=== PATIENT | female | born 1990 | race Caucasian/White ===

== ENCOUNTER 2024-02-26 20:46 | Emergency (ER) | payer OTHER, SELFPAY ==
[2024-02-26 20:59] VITALS: BMI 23.4
[2024-02-26 21:00] VITALS: BP 110/71
--- NOTE | 2024-02-26 21:50 | ED.GENMED ---
History of Present Illness
General
Chief Complaint: Crisis Evaluation
Source: patient
Exam Limitations: none
Time Seen by Provider: 02/26/24 21:09
Nursing documentation reviewed up to this point in time: agreed with
History of Present Illness
History of Present Illness:
33-year-old female with past medical history of anxiety and depression, distant history of alcohol use who presents to the emergency room for evaluation of depression and erratic behavior. Patient says that unfortunately her father recently passed
away and she has been under increased stress recently. She says that because of this she has been a bit more withdrawn and she says a bit more depressed as well. Apparently her mother is very concerned about erratic behavior recently�mother
reports that she is not sleeping, was not eating today and has been behaving oddly. Patient cites increased stress as the cause of this behavior. Patient does not feel suicidal she says. She has no homicidal ideation. She denies any
hallucinations to me. She denies any drug or alcohol use to me and says she has been sober for 3 years. She was brought into the emergency room to be assessed. When asked if she feels that she needs psychiatric treatment patient says 'I am not
sure.' Apparently patient's mother and brother feel that she needs inpatient psychiatric care and are concerned for her wellbeing.
Past History
Past History
ED Past Medical History: Psychiatric (Anxiety, Bipolar, depression. PTSD, ADHD) and Other (UTI , Renal calculus, Liver cyst)
ED Past Surgical History: Other
Social History
Tobacco: Smoker
Alcohol: Chronic alcoholic
Drug: None
Personal: Single
Living: with family
Employment: Other
Family History
Family History: Hypertension
Review of Systems
Review of Systems
All Other Systems: ROS reviewed and negative except as documented in HPI and ROS
Constitutional: Denies fever
Respiratory: Denies trouble breathing
Cardiac: Denies chest pain
ABD/GI: Denies abdominal pain or vomiting
: Denies flank pain
Musculoskeletal: Denies neck pain or back pain
Neurological: Denies headache
Psychiatric: Reports depression and anxiety; Denies suicidal or hallucinations
Phy Exam
Physical Exam
Physical Exam:
General: Awake, alert, oriented x3; appears anxious
Head: Normocephalic, atraumatic
Eyes: Conjunctiva normal, pupils equal round reactive to light bilaterally, sclera anicteric
Throat: Airway intact, handling secretions
Neck: Trachea midline, supple without meningismus
Lungs: Clear to auscultation bilaterally, no wheezing, rales, rhonchi
Heart: Regular rate and rhythm, no murmurs, gallops, or rubs
Abd: Soft, non distended, nontender
Neuro: No gross deficits
Skin: Patient has scabs scattered on the neck and extremities
Extremities: Warm well-perfused, no signs of self-harm/cutting
Scores
Heart Failure Risk
Heart Failure Risk Score: Not Applicable
Heart Score for Chest Pain Patients
STEMI patient?: Not applicable
Withdrawal Assessment of Alcohol
Withdrawal Assessment Completed?: Not applicable
Course
Orders/Labs/Results
Orders:
Orders
02/26/24 21:10
1:1 Observation - Suicide/ Violent Behavior As Directed
Crisis Consult Routine
Reason for Consult: depression
02/26/24 21:36
Test Result ONCE
02/26/24 21:37
Drug Screen, Urine [Urine Drug Abuse Screen] Urgent
Date Specimen was Collected: 02/26/24
Time Specimen was Collected: 21:42
Urinalysis Reflex To Culture Urgent
Date Specimen was Collected: 02/26/24
Time Specimen was Collected: 21:42
02/26/24 22:13
Acetaminophen Urgent
Alcohol Urgent
Complete Blood Count/With Diff Urgent
Comprehensive Metabolic Panel Urgent
HCG, Serum Qualitative Screen Urgent
Salicylate Urgent
Abnormal Lab Results
02/26/24
22:13
Potassium 3.3 L mmol/L
(3.5-5.1)
Carbon Dioxide 20 L mmol/L
(22-30)
BUN 29 H mg/dl
(7-17)
Creatinine 1.1 H mg/dL
(0.6-1.0)
Total Bilirubin 2.6 H mg/dl
(0.2-1.3)
Salicylates < 1.0 L mg/dl
(2.0-20.0)
Acetaminophen < 10 L ug/ml
(10-30)
02/26/24 22:13
Vital Signs
Initial and Last Documented VS:
Initial Vital Signs
Temp Pulse Resp BP Pulse Ox
37.4 C 86 21 110/71 98
02/26/24 21:00 02/26/24 21:00 02/26/24 21:00 02/26/24 21:00 02/26/24 21:00
Last Documented Vital Signs
Temp Pulse Resp BP Pulse Ox
37.4 C 86 21 110/71 98
02/26/24 21:00 02/26/24 21:00 02/26/24 21:00 02/26/24 21:00 02/26/24 21:00
MDM/Problems Addressed
Differential Diagnosis Includes:
Depression, drug use, bipolar disorder
MDM/Problems Addressed:
33-year-old female presents for evaluation of depression and bizarre behavior over the past few days she says triggered by increased stress recently including the passing of her father. Family is concerned for patient's wellbeing. Brought patient
in for assessment. Patient has no physical complaints. Vitals and exam as above. Will check screening labs and drug screen. Case discussed with crisis team to assess.
Crisis team assessed patient and long discussion with patient and her mother. Patient becoming increasingly agitated and erratic. Mother is concerned for patient's wellbeing and safety because her behavior has been very erratic and she is not
caring for herself. Mother filed 302. Will monitor patient pending telepsychiatry evaluation.
Chronic conditions affecting care:
Depression and anxiety
*Pulse Oximetry
Patient hypoxic: no
*Critical Care Note
Total Time (30-74mins, 75-104mins- exclusive of procedures): Not Applicable
Data Reviewed
Source: patient and family
Patient Management
Discussion with other providers: Other (Discussed with crisis staff)
ED Attending Note
-
Portions of this chart may have been created with voice recognition software.� Occasional wrong word or��sound alike� substitutions may have occurred due to the inherent limitations of voice recognition software.
Discharge Plan
Departure
Patient Disposition: Psych Facility
Date of Disposition: 02/26/24
Time of Disposition: 23:06
Discharge Problem:
Depression, Bizarre behavior
Prescriptions:
No Action
dextroamphetamine-amphetamine [Adderall] 20 MG tablet
20 mg PO DAILY
Patient Comments:
take in the afternoon
dextroamphetamine-amphetamine [Adderall XR] 30 MG capsule,extended release 24hr
30 mg PO BID
Nuvaring Vaginal Ring
1
hydrocodone-acetaminophen [Vicodin] 1 EACH tablet
1 ea PO .Q4-6HPRN Qty: 12 0RF
ibuprofen 600 MG tablet
600 mg PO Q6H Qty: 30 0RF
levofloxacin 500 MG tablet
500 mg PO DAILY Qty: 9 0RF
ondansetron 4 MG tablet,disintegrating
4 mg PO TIDPRN PRN (Reason: NAUSEA) Qty: 20 0RF
ibuprofen 600 mg tablet
600 mg PO Q6H PRN (Reason: pain) Qty: 20 0RF
tramadol 50 mg tablet
50 mg PO Q8H PRN (Reason: pain) Qty: 10 0RF
oxycodone 5 mg tablet
5 mg PO Q8H PRN (Reason: pain) Qty: 10 0RF
lidocaine [Lidoderm] 5 % adhesive patch,medicated
1 patch topical DAILY Qty: 15 0RF
chlorpromazine 50 mg tablet
50 mg PO BID Qty: 14 0RF
Referrals:
UNKNOWN - PT NOT,INTERVIE[facility] [Family Provider] -
Interventions
Interventions:
*Risk Screen - Suicide Last Done: 02/26/24 20:59
*General Assessment Last Done: 02/26/24 20:59
*Neglect/Abuse Screening Last Done: 02/26/24 20:59
ED-Psychological Assessment Last Done: 02/26/24 21:21
Discharge Date and Time
Print Language: AMHARIC
[2024-02-26 22:35] LABS: ALT (SGPT) 27 U/L (0-35); AST (SGOT) 32 U/L (14-36); Acetaminophen < 10 ug/ml (10-30); Albumin 4.7 g/dl (3.5-5.0); Alkaline Phosphatase 76 U/L (38-126); Blood Urea Nitrogen 29 mg/dl (7-17); Calcium 9.8 mg/dl (8.4-10.2); Carbon Dioxide 20 mmol/L (22-30); Chloride 99 mmol/L (98-107); Estimated Creatinine Clearance 67 ml/min; Glucose 75 mg/dl (70-99); Potassium 3.3 mmol/L (3.5-5.1); Salicylate < 1.0 mg/dl (2.0-20.0); Sodium 135 mmol/L (135-145); Total Bilirubin 2.6 mg/dl (0.2-1.3); Total Protein 7.3 g/dl (6.3-8.2); eGFR > 60.00
[2024-02-26 22:36] LABS: Alcohol None Detected; HCG, Serum Qualitative Screen Negative
[2024-02-26 23:12] LABS: % Basophils 0.9 % (0-2); % Eosinophils 1.6 % (0-6); % Immature Granulocytes 0.6 % (0-0.5); % Lymphocytes 18.8 % (20.5-51.1); % Monocytes 8.7 % (1.7-9.3); % Neutrophils 69.4 % (42.2-75.2); Absolute Basophils 0.2 10^3/uL (0-0.2); Absolute Eosinophils 0.3 10^3/uL (0-0.7); Absolute Immature Granulocytes 0.1 10^3/uL (0-0.05); Absolute Monocytes 1.4 10^3/uL (0.1-0.6); Absolute Neutrophils 11.1 10^3/uL (1.4-6.5); Hematocrit 34.1 % (37.0-47.0); Hemoglobin 13.2 g/dL (12.0-16.0); Mean Corp Hgb Conc. 38.7 g/dL (33.0-37.0); Mean Corpuscular Hgb 32.6 pg (27.0-31.0); Mean Corpuscular Volume 84.2 fL (81.0-99.0); Mean Platelet Volume 10.2 fL (7.4-10.4); Nucleated Red Blood Cells % 0 %; Platelet Count 356 10^3/uL (130-400); Red Blood Cell Count 4.05 10^6/uL (4.20-5.40); Red Cell Dist. Width 12.1 % (11.5-14.5)
[2024-02-26 23:52] VITALS: BP 111/70
[2024-02-27] MEDS: ATIVAN 1 MG PO (00:08)
[2024-02-27 01:45] LABS: Urine Albumin Trace (Neg - Trace); Urine Bilirubin 1+ (Negative); Urine Character Clear (Clear); Urine Color Yellow; Urine Glucose Negative (Negative); Urine Ketone 3+ (Negative); Urine Leukocyte 1+ (Negative); Urine Nitrite Negative (Negative); Urine Occult Blood Negative (Negative); Urine Specific Gravity 1.015 (<1.030); Urine Urobilinogen Negative (Neg - 1+)
[2024-02-27 01:52] LABS: Urine Squamous Cell >30 /LPF (Few)
[2024-02-27 01:54] LABS: Urine Bacteria Moderate (Negative); Urine Red Blood Cell 0-2 /HPF (0-2); Urine White Cell 26-30 /HPF (0-5)
--- NOTE | 2024-02-27 01:58 | ED.GENMED ---
History of Present Illness
General
Chief Complaint: Crisis Evaluation
Time Seen by Provider: 02/26/24 21:09
History of Present Illness
History of Present Illness:
33-year-old female seen in crisis. She states that she is depressed. She denies suicidal or homicidal ideation, intent, or plan. Patient accompanied by mom.
Past History
Past History
ED Past Medical History: Psychiatric (Anxiety, Bipolar, depression. PTSD, ADHD) and Other (UTI , Renal calculus, Liver cyst)
ED Past Surgical History: Other
Social History
Tobacco: Smoker
Alcohol: Chronic alcoholic
Drug: None
Personal: Single
Living: with family
Employment: Other
Family History
Family History: Hypertension
Phy Exam
Physical Exam
Physical Exam:
Physical Exam
Vital signs and allergy list reviewed and agreed with.
GENERAL: Alert , in minimal to no apparent distress
EYE: pupils equal, EOMI, anicteric
NECK: Supple, no significant adenopathy. No masses. Trachea midline
ENT: Oropharynx is clear, mmm.
CARDIAC: Regular rate and rhythm . No M/R/G
LUNGS: Clear breath sounds bilaterally, no acute respiratory distress, no wheezes/rales/rhonchi
NEUROLOGICAL: Alert and oriented, no focal neuro deficits
SKIN: Warm and dry, skin intact.
MUSCULOSKELETAL: No edema, well perfused. Moves all 4 extremities
PSYCH: Normal and appropriate interaction.
Course
Orders/Labs/Results
Orders:
Orders
02/26/24 21:10
1:1 Observation - Suicide/ Violent Behavior As Directed
Crisis Consult Routine
Reason for Consult: depression
02/26/24 21:36
Test Result ONCE
02/26/24 21:37
Drug Screen, Urine [Urine Drug Abuse Screen] Urgent
Date Specimen was Collected: 02/26/24
Time Specimen was Collected: 21:42
Urinalysis Reflex To Culture Urgent
Date Specimen was Collected: 02/26/24
Time Specimen was Collected: 21:42
02/26/24 22:13
Acetaminophen Urgent
Alcohol Urgent
Complete Blood Count/With Diff Urgent
Comprehensive Metabolic Panel Urgent
HCG, Serum Qualitative Screen Urgent
Salicylate Urgent
02/27/24 00:04
Lorazepam [Ativan] 1 mg PO NOW STA
02/27/24 01:33
Fentanyl, Urine Urgent
Urine Microscopic Reflex Cult Urgent
Urine Culture Urgent
SANDRA Source: U
Specimen Description:
Date Specimen was Collected: 02/26/24
Time Specimen was Collected: 21:42
Abnormal Lab Results
02/26/24 02/27/24
22:13 01:33
WBC 16.0 H 10^3/uL
(4.8-10.8)
RBC 4.05 L 10^6/uL
(4.20-5.40)
Hct 34.1 L %
(37.0-47.0)
MCH 32.6 H pg
(27.0-31.0)
MCHC 38.7 H g/dL
(33.0-37.0)
Abs Immat Gran (auto) 0.1 H 10^3/uL
(0-0.05)
Absolute Neuts (auto) 11.1 H 10^3/uL
(1.4-6.5)
Absolute Monos (auto) 1.4 H 10^3/uL
(0.1-0.6)
Immature Gran % 0.6 H %
(0-0.5)
Lymphocytes % 18.8 L %
(20.5-51.1)
Potassium 3.3 L mmol/L
(3.5-5.1)
Carbon Dioxide 20 L mmol/L
(22-30)
BUN 29 H mg/dl
(7-17)
Creatinine 1.1 H mg/dL
(0.6-1.0)
Total Bilirubin 2.6 H mg/dl
(0.2-1.3)
Urine Ketones 3+ A
(Negative)
Urine Bilirubin 1+ A
(Negative)
Leukocyte Esterase Rfl 1+ A
(Negative)
Urine WBC (Reflex) 26-30 A /HPF
(0-5)
Urine Bacteria (Reflex) Moderate A
(Negative)
Salicylates < 1.0 L mg/dl
(2.0-20.0)
Acetaminophen < 10 L ug/ml
(10-30)
Ur Tricyclics Screen Positive H
(Negative)
Ur Amphetamines Screen Positive H
(Negative)
U Marijuana (THC) Screen Positive H
(Negative)
02/26/24 22:13
02/26/24 22:13
Vital Signs
Initial and Last Documented VS:
Initial Vital Signs
Temp Pulse Resp BP Pulse Ox
99.4 F 86 21 110/71 98
02/26/24 21:00 02/26/24 21:00 02/26/24 21:00 02/26/24 21:00 02/26/24 21:00
Last Documented Vital Signs
Temp Pulse Resp BP Pulse Ox
99.4 F 80 21 120/70 99
02/26/24 21:00 02/27/24 02:50 02/26/24 21:00 02/27/24 02:50 02/27/24 02:56
*Critical Care Note
Total Time (30-74mins, 75-104mins- exclusive of procedures): Not Applicable
Update Note
Update Note:
02/27/2024 0158 AM: 302 not upheld by delegate. Patient was not seen by telepsych. I spoke with mom after speaking with patient. Patient stated that she does not want to go to a psych facility. Mom spent some time with patient and they discussed
options. Mom states that she will take her home tonight. They will utilize the resources provided on Friday. Patient will be discharged into the care of mom. Patient is still not having any suicidal or homicidal thoughts intentions or plans.
ED Attending Note
-
Portions of this chart may have been created with voice recognition software.� Occasional wrong word or��sound alike� substitutions may have occurred due to the inherent limitations of voice recognition software.
Discharge Plan
Departure
Patient Disposition: Home (Routine Discharge)
Date of Disposition: 02/26/24
Time of Disposition: 23:06
Patient with high blood pressure during this ER visit?: No
Discharge Problem:
Depression, Bizarre behavior
Instructions: Depression, Adult (DC), Anxiety, Adult (DC)
Prescriptions:
No Action
dextroamphetamine-amphetamine [Adderall] 20 MG tablet
20 mg PO DAILY
Patient Comments:
take in the afternoon
dextroamphetamine-amphetamine [Adderall XR] 30 MG capsule,extended release 24hr
30 mg PO BID
Nuvaring Vaginal Ring
1
hydrocodone-acetaminophen [Vicodin] 1 EACH tablet
1 ea PO .Q4-6HPRN Qty: 12 0RF
ibuprofen 600 MG tablet
600 mg PO Q6H Qty: 30 0RF
levofloxacin 500 MG tablet
500 mg PO DAILY Qty: 9 0RF
ondansetron 4 MG tablet,disintegrating
4 mg PO TIDPRN PRN (Reason: NAUSEA) Qty: 20 0RF
ibuprofen 600 mg tablet
600 mg PO Q6H PRN (Reason: pain) Qty: 20 0RF
tramadol 50 mg tablet
50 mg PO Q8H PRN (Reason: pain) Qty: 10 0RF
oxycodone 5 mg tablet
5 mg PO Q8H PRN (Reason: pain) Qty: 10 0RF
lidocaine [Lidoderm] 5 % adhesive patch,medicated
1 patch topical DAILY Qty: 15 0RF
chlorpromazine 50 mg tablet
50 mg PO BID Qty: 14 0RF
Referrals:
[facility] [Active] -
UNKNOWN - PT NOT,INTER[facility] [Family Provider] -
Interventions
Interventions:
*Risk Screen - Suicide Last Done: 02/26/24 20:59
*General Assessment Last Done: 02/26/24 20:59
*Neglect/Abuse Screening Last Done: 02/26/24 20:59
ED- Fall Risk Assessment Last Done: 02/26/24 23:42
*ED COVID-19 Vaccine History Last Done: 02/26/24 23:42
*Nursing Disposition Last Done: 02/27/24 02:56
ED-Psychological Assessment Last Done: 02/26/24 21:21
Discharge Date and Time
Discharge Date/Time: 02/27/24 03:00
Print Language: HAITIAN
[2024-02-27 01:59] LABS: Amphetamines Positive (Negative); Barbiturates Negative (Negative); Benzodiazepines Negative (Negative); Buprenorphine Negative (Negative); Cocaine Negative (Negative); Marijuana Positive (Negative); Methadone Negative (Negative); Methamphetamines Negative (Negative); Opiates Negative (Negative); Phencyclidine Negative (Negative); Tricyclic Antidepressants Positive (Negative)
[2024-02-27 02:13] LABS: Fentanyl, Urine Negative (Negative)
[2024-02-27 02:50] VITALS: BP 120/70
== END 2024-02-27 03:00 | disposition home or self-care (01) ==
LOC: EMR 20:46
PROVIDERS: EMERGENCY PHYSICIAN Emergency Medicine
DX: F32.A Depression, unspecified (principal); F41.9 Anxiety disorder, unspecified; F17.200 Nicotine dependence, unspecified, uncomplicated; Z63.4 Disappearance and death of family member
CPT/HCPCS: 99285; 80053; 80143; 80179; 80306; 80307; 81003; 81015; 82077; 84703; 85025; 87086